=== PATIENT | male | born 1980 | race Caucasian/White ===

== ENCOUNTER 2017-10-19 06:40 | Day surgery (SDC) | payer OTHER ==
[2017-10-18 16:28] VITALS: BMI 33.9
[2017-10-19] MEDS ORDERED: Oxymetazoline HCl 0.05% ( 15 ML ) ONE ×2 (08:08→08:19)
[2017-10-19] MEDS ORDERED: Bacitracin Zinc Ointment 30 gm TUBE ONE (08:08)
[2017-10-19] MEDS ORDERED: Lidocaine 1% w/Epinephrine 1:200K 30 ML VIAL ONE (08:08)
[2017-10-19] MEDS ORDERED: Ondansetron HCl/PF 4 MG/2 ML Vial ONE ×3 (08:17→15:14)
[2017-10-19] MEDS ORDERED: Fentanyl 100 MCG/2 ML VIAL ONE ×2 (08:17→09:53)
[2017-10-19] MEDS ORDERED: Midazolam HCl 2 mg/2 ml Vial ONE (08:41)
[2017-10-19] MEDS ORDERED: HYDROcodone/Acetaminophen 5/325 mg Tablet ONE (11:51)
--- NOTE | 2017-10-19 12:50 | OP ---
DATE OF PROCEDURE: 10/19/2017 PREOPERATIVE DIAGNOSES: 1. Chronic rhinosinusitis. 2. Nasal septal deviation. 3. Bilateral inferior turbinate hypertrophy. 4. Nasal obstruction. 5. Uvula hypertrophy. SURGEON: Kal Garza M.D. ESTIMATED BLOOD LOSS: 50 mL. COMPLICATIONS: None. ANESTHESIA: GETA. PROCEDURES: 1. Bilateral endoscopic sinus surgery, total ethmoidectomies. 2. Bilateral endoscopic sinus surgery, maxillary antrostomies. 3. Bilateral endoscopic sinus surgery, frontal sinusotomies. 4. Bilateral endoscopic sinus surgery, sphenoidotomies. 5. Nasal septoplasty. 6. Bilateral inferior turbinate submucosal resection. 7. Uvulectomy. SURGEON: Dr. Kal Gazra. DATE OF PROCEDURE: SURGEON: Kal Garza M.D. PROCEDURE IN DETAIL: Patient was taken to the operating room and placed supine on the table. Genera l endotracheal anesthesia was obtained by the Anesthesia staff. Tube was secured in the left lower l ip. Patient was then placed in the beach chair position, and Afrin pledgets were placed in the nasal cavity. Injections of 1% lidocaine with 1:100,000 epinephrine were made into the nasal septum as we ll as the inferior turbinates. Patient was then prepped and draped in standard surgical fashion for nasal surgery. Following this, the Afrin pledgets were removed. A Kareem incision was made on the l eft nasal septum. Submucoperichondrial dissection was performed. The deviated portions of the septum included portions of the cartilage and the bony septum. These isolated areas were removed using thr ee cutting rongeurs. There was noted to be a large dorsal and caudal strut, left intact for support of the nose. The mucoperichondrial flaps were then reapproximated using a 4-0 gut stitch. Any straig ht pieces of cartilage were crushed prior to this and placed between the mucoperichondrial flaps. Fo llowing this, the inferior turbinates were then punctured with a submucosal coblation wand, and submu cosal coblations were performed of multiple areas of the inferior portion of the anterior inferior tu rbinate. Please note that the submucosal microdebrider was used to submucosally inferior portions of the infer ior turbinates bilaterally. Following this, the inferior turbinates were then laterally fractured wi th [place] elevator. Following this, the middle turbinates were gently medialized with [place] elevator. The ball ended probe was then used to anteriorly fracture the uncinate process bilaterally. Using the straight microdebrider, the uncinate was removed. Following this, the natural maxillary sinus os tia was identified and was gently widened using the microdebrider and straight Blakesley forceps. Fo llowing this, the ethmoidal bulla was identified bilaterally and was punctured on its medial and infe rior aspect and was removed using microdebrider. The grand lamella was identified and was then punct ured into the posterior ethmoidal cells. Working from posterior to anterior, the ethmoidal cells wer e opened in a mucosal-sparing technique. Following this, the sphenoid sinuses were approached throug h the previous ethmoidectomies where the attachment of the superior nasal turbinate and its connectio n to the posterior nasal wall was identified. Staying just medial and inferior to this, the sphenoid otomies were created using the Tello tip suction and then widened medially and inferiorly using the microdebrider bilaterally. Following this, 45 degree scope and the upbiting Blakesley forceps were used to further open the frontal recess cells and identify and widen the frontal sinus ostia bilatera lly. Following this, the nasal cavity was irrigated. MeroPacks were placed in the middle meatus. D oyle splints were placed and secured. The Bill-Mayank mouth gag was then introduced in the oral cavi ty and was retracted. A markedly elongated uvula and soft palate was identified. Multiple measureme nts were made to ensure an adequate palatal length to the posterior wall of the pharynx and excessive portions of the uvula and soft palate were resected using Bovie electrocautery. A 3-0 chromic gut s titch was used to reapproximate the mucosal edges. Patient tolerated the procedure well.
[2017-10-19] MEDS ORDERED: Lidocaine 1% PF 5 ML VIAL ONE (15:14)
[2017-10-19] MEDS ORDERED: Succinylcholine Chloride 20 MG/ML 10 ml SYRINGE FS ONE (15:14)
[2017-10-19] MEDS ORDERED: Ketorolac Tromethamine 30 MG/ML VIAL ONE (15:14)
[2017-10-19] MEDS ORDERED: PROPOFOL 200 MG/20 ML VIAL ONE (15:14)
[2017-10-19] MEDS ORDERED: Dexamethasone 20 MG/5 ML VIAL ONE (15:14)
== END 2017-10-19 12:44 | disposition home or self-care (01) ==
LOC: SDC 06:40
PROVIDERS: ATTEND Otolaryngology Plastic Surgery within the Head & Neck
PROC: 09TV8ZZ Resection of Left Ethmoid Sinus, Via Natural or Artificial Opening Endoscopic (ICD-10-PCS; principal; 2017-10-19)
PROC: 099W8ZZ Drainage of Right Sphenoid Sinus, Via Natural or Artificial Opening Endoscopic (ICD-10-PCS; principal; 2017-10-19)
PROC: 099X8ZZ Drainage of Left Sphenoid Sinus, Via Natural or Artificial Opening Endoscopic (ICD-10-PCS; principal; 2017-10-19)
PROC: 099R8ZZ Drainage of Left Maxillary Sinus, Via Natural or Artificial Opening Endoscopic (ICD-10-PCS; principal; 2017-10-19)
PROC: 0CTN0ZZ Resection of Uvula, Open Approach (ICD-10-PCS; principal; 2017-10-19)
PROC: 099T8ZZ Drainage of Left Frontal Sinus, Via Natural or Artificial Opening Endoscopic (ICD-10-PCS; principal; 2017-10-19)
PROC: 09TU8ZZ Resection of Right Ethmoid Sinus, Via Natural or Artificial Opening Endoscopic (ICD-10-PCS; principal; 2017-10-19)
PROC: 099S8ZZ Drainage of Right Frontal Sinus, Via Natural or Artificial Opening Endoscopic (ICD-10-PCS; principal; 2017-10-19)
PROC: 099Q8ZZ Drainage of Right Maxillary Sinus, Via Natural or Artificial Opening Endoscopic (ICD-10-PCS; principal; 2017-10-19)
PROC: 09BM0ZZ Excision of Nasal Septum, Open Approach (ICD-10-PCS; principal; 2017-10-19)
DX: J32.9 Chronic sinusitis, unspecified (principal); J34.2 Deviated nasal septum; J34.3 Hypertrophy of nasal turbinates; K13.79 Other lesions of oral mucosa
CPT/HCPCS: J1100; J1885; J2001; J2250; J2405; J2704; J3010

== ENCOUNTER 2020-02-18 06:05 | Outpatient (CLI) | payer OTHER ==
[2020-02-19 13:57] LABS: SARS-CoV-2 MS2 Positive; SARS-CoV-2 N Gene Negative; SARS-CoV-2 S Gene Negative; SARS-CoV-2 orf1ab Negative
== END 2020-02-18 06:06 | disposition home or self-care (01) ==
LOC: LABBT 06:05
PROVIDERS: ATTEND Otolaryngology Plastic Surgery within the Head & Neck
DX: Z01.818 Encounter for other preprocedural examination (principal); Z11.59 Encounter for screening for other viral diseases; J32.0 Chronic maxillary sinusitis; J32.1 Chronic frontal sinusitis; J32.2 Chronic ethmoidal sinusitis; J32.3 Chronic sphenoidal sinusitis; J34.3 Hypertrophy of nasal turbinates; H69.80 Other specified disorders of Eustachian tube, unspecified ear; H92.10 Otorrhea, unspecified ear; J33.9 Nasal polyp, unspecified
CPT/HCPCS: 87635; U0003

== ENCOUNTER 2020-02-20 06:25 | Day surgery (SDC) | payer OTHER ==
[2020-02-20] MEDS ORDERED: AFRIN NASAL MIST 15 ML BOT ONE ×2 (07:24→07:44)
[2020-02-20] MEDS ORDERED: Acetaminophen 500 MG TAB ONE (07:27)
[2020-02-20] MEDS ORDERED: Ciprofloxacin 0.2% Otic 1 DROP CON ONE (07:44)
[2020-02-20] MEDS ORDERED: Lidocaine 1% w/Epinephrine 1:100K 20 ML VIAL ONE (07:44)
[2020-02-20] MEDS ORDERED: Midazolam HCl 2 mg/2 ml Vial ONE (07:46)
[2020-02-20] MEDS ORDERED: Fentanyl 100 MCG/2 ML VIAL ONE ×2 (07:46→09:21)
[2020-02-20] MEDS ORDERED: Ondansetron PF 4 MG/2 ML Vial ONE (10:02)
[2020-02-20] MEDS ORDERED: PROPOFOL 200 MG/20 ML VIAL ONE (10:02)
[2020-02-20] MEDS ORDERED: Dexamethasone 20 MG/5 ML VIAL ONE (10:02)
[2020-02-20] MEDS ORDERED: Lidocaine 1% PF 5 ML VIAL ONE (10:02)
[2020-02-20] MEDS ORDERED: Glycopyrrolate 0.2 MG/ML 5 ML SYRINGE ONE (10:02)
[2020-02-20] MEDS ORDERED: Rocuronium Bromide 10 MG/ML (10ML VIAL) ONE (10:02)
--- NOTE | 2020-02-21 17:07 | OP ---
DATE OF PROCEDURE: 02/20/2020 PREOPERATIVE DIAGNOSES: 1. Chronic rhinosinusitis. 2. Nasal polyposis. 3. Bilateral eustachian tube dysfunction. 4. Nasal obstruction. 5. Bilateral inferior turbinate hypertrophy. POSTOPERATIVE DIAGNOSES: 1. Chronic rhinosinusitis. 2. Nasal polyposis. 3. Bilateral eustachian tube dysfunction. 4. Nasal obstruction. 5. Bilateral inferior turbinate hypertrophy. PROCEDURES PERFORMED: 1. Bilateral endoscopic sinus surgery, total ethmoidectomies including sphenoidotomies with removal of tissue. 2. Bilateral endoscopic sinus surgery, frontal sinus exploration. 3. Right endoscopic sinus surgery, maxillary antrostomies with removal of tissue. 4. Bilateral inferior turbinate submucosal resection. 5. LandmarX stereotactic image-guided sinus surgery. ESTIMATED BLOOD LOSS: 20 mL. COMPLICATIONS: None. ANESTHESIA: GETA. DESCRIPTION OF PROCEDURE: The patient was taken to the operating room and placed supine on the table. General endotracheal anesthesia was obtained by the Anesthesia staff. The patient was prepped and draped for standard nasal procedure and the patient was placed in the beach chair position. The eZono image-guided system was setup and calibrated and was noted to be within 1 mm of accuracy. All remaining instruments used were under stereotactic navigation. Following this, a 0-degree endoscope was advanced into the middle meatus. The previous ethmoidectomies had multiple scar adhesions and bands along with nasal polyps that were obstructing the ethmoidal cells. The 0-degree microdebrider and a 40-degree microdebrider under stereotactic guidance were used to remove bone tissue and nasal polyps from the ethmoidal sinuses opening the anterior and posterior ethmoidal sinuses bilaterally. Following this, the sphenoid sinuses were identified using the navigational system and the 0-degree microdebrider was used to create a sphenoidotomy into the anterior wall of the sphenoid sinus. The sphenoidotomy was then widened medially and inferiorly with the microdebrider, removing nasal polyps, which were obstructing this area and removing bone and scar tissue. Following this, a 45-degree endoscope and the 40-degree microdebrider blade were used to identify the frontal sinus ostia, which was stenotic and narrowed with bone and scar bands. This area was opened using the 40-degree microdebrider bilaterally. Following this, the left maxillary sinus ostia was patent and healthy. On the right side, there was remnant bone edge, which was obstructing maxillary sinus ostia. This was removed using the straight Blakesley forceps, up-biting Blakesley forceps, and 40-degree microdebrider. Following this, inferior turbinates were punctured on the anterior-inferior aspect and submucosal resection was performed of the anterior-inferior aspects of the inferior turbinates bilaterally. Inferior turbinates were then laterally fractured with a [place] elevator. Following this, the eustachian tube dilation device was inserted into the eustachian tube under direct visualization using the 0-degree endoscope and the eustachian tube was dilated for 2 minutes on each side to 12 atmospheres of pressure. Following this, the eZono image-guided system was turned off. The patient tolerated the procedure well. Job ID: [id number]
== END 2020-02-20 11:00 | disposition home or self-care (01) ==
LOC: SDC 06:25
PROVIDERS: ATTEND Otolaryngology Plastic Surgery within the Head & Neck
PROC: 09BV8ZZ Excision of Left Ethmoid Sinus, Via Natural or Artificial Opening Endoscopic (ICD-10-PCS; principal; 2020-02-20)
PROC: 099X8ZZ Drainage of Left Sphenoid Sinus, Via Natural or Artificial Opening Endoscopic (ICD-10-PCS; principal; 2020-02-20)
PROC: 09BS8ZZ Excision of Right Frontal Sinus, Via Natural or Artificial Opening Endoscopic (ICD-10-PCS; principal; 2020-02-20)
PROC: 099R8ZZ Drainage of Left Maxillary Sinus, Via Natural or Artificial Opening Endoscopic (ICD-10-PCS; principal; 2020-02-20)
PROC: 099Q8ZZ Drainage of Right Maxillary Sinus, Via Natural or Artificial Opening Endoscopic (ICD-10-PCS; principal; 2020-02-20)
PROC: 8E09XBZ Computer Assisted Procedure of Head and Neck Region (ICD-10-PCS; principal; 2020-02-20)
PROC: 09BU8ZZ Excision of Right Ethmoid Sinus, Via Natural or Artificial Opening Endoscopic (ICD-10-PCS; principal; 2020-02-20)
PROC: 099W8ZZ Drainage of Right Sphenoid Sinus, Via Natural or Artificial Opening Endoscopic (ICD-10-PCS; principal; 2020-02-20)
PROC: 09BT8ZZ Excision of Left Frontal Sinus, Via Natural or Artificial Opening Endoscopic (ICD-10-PCS; principal; 2020-02-20)
DX: J32.4 Chronic pansinusitis (principal); J33.9 Nasal polyp, unspecified; J34.3 Hypertrophy of nasal turbinates; H69.80 Other specified disorders of Eustachian tube, unspecified ear; Z79.899 Other long term (current) drug therapy
CPT/HCPCS: C2625; J1100; J2001; J2250; J2405; J2704; J3010